=== PATIENT | female | born 1970 | race Caucasian/White ===

== ENCOUNTER 2022-02-16 14:00 | Emergency (ER) | payer OTHER ==
[~2022-02-16] VITALS: Ht 154.9 cm; Wt 62.1 kg
[2022-02-16 14:09] VITALS: BP 135/85
[2022-02-16] MEDS ORDERED: KETOROLAC 30 MG/ML VIAL IM ONE (15:25)
[2022-02-16] MEDS ORDERED: IBUP-2213 PO (17:46)
[2022-02-16] MEDS ORDERED: CEPH-588 PO (17:46)
[2022-02-16 18:08] VITALS: BP 128/65
== END 2022-02-16 18:08 | disposition home or self-care (01) ==
LOC: MED 14:00
DX: M79.652 Pain in left thigh (principal); M79.651 Pain in right thigh; N39.0 Urinary tract infection, site not specified
CPT/HCPCS: 73552; 81025; 96372; 99283; J1885

== ENCOUNTER 2022-03-08 08:45 | Emergency (ER) | payer OTHER ==
[~2022-03-08] VITALS: Ht 151.6 cm; Wt 68.0 kg
[~2022-03-08 08:45] MED LIST: CEPH-588 PO; IBUP-2213 PO
[2022-03-08 08:55] VITALS: BP 150/85
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
[2022-03-08] MEDS ORDERED: BEN50 PO (09:44)
[2022-03-08] MEDS ORDERED: PRED20TA5 PO (09:44)
[2022-03-08] MEDS ORDERED: FLUO0.0210 TP (09:44)
[2022-03-08 09:55] VITALS: BP 150/85
--- NOTE | 2022-03-08 09:55 | NUR ---
Patient discharged with v/s stable. Written and verbal after care instructions ABOUT CONTACT DERMATITIS given and explained. Patient alert, oriented and verbalized understanding of instructions. Ambulatory with steady gait. All questions addressed prior to discharge. ID band removed. Patient advised to follow up with PMD. Rx of BENADRYL, SYNALAR AND DELTASONE given. Patient educated on indication of medication including possible reaction and side effects. Opportunity to ask questions provided and answered.
== END 2022-03-08 09:55 | disposition home or self-care (01) ==
LOC: MED 08:45
DX: L25.9 Unspecified contact dermatitis, unspecified cause (principal); D64.9 Anemia, unspecified; F41.9 Anxiety disorder, unspecified; Z79.899 Other long term (current) drug therapy
CPT/HCPCS: 99283

== ENCOUNTER 2023-01-23 12:21 | Emergency (ER) | payer BC, OTHER ==
[~2023-01-23] VITALS: Ht 152.4 cm; Wt 68.0 kg
[~2023-01-23 12:21] MED LIST changes: +BEN50 PO; +FLUO0.0210 TP; +PRED20TA5 PO
[2023-01-23 12:46] VITALS: BP 120/54; PULSE 88; RESP 20; TEMP 98; O2SAT 100
[2023-01-23] MEDS ORDERED: diphenhydrAMINE 50 MG CAP PO ONE (13:35)
[2023-01-23] MEDS ORDERED: FAMOTIDINE 20 MG TAB PO ONE (13:35)
[2023-01-23] MEDS ORDERED: predniSONE 20 MG TAB PO ONE (13:35)
[2023-01-23] MEDS ORDERED: PRED20TA5 PO (14:37)
[2023-01-23] MEDS ORDERED: NITR100C7 PO (14:37)
[2023-01-23] MEDS ORDERED: LORA10TA19 PO (14:37)
[2023-01-23 14:49] VITALS: BP 115/79; PULSE 74; RESP 17; O2SAT 99
--- NOTE | 2023-01-23 14:50 | NUR ---
Patient discharged with v/s stable. Written and verbal after care instructions given and explained. Patient alert, oriented and verbalized understanding of instructions. Ambulatory with steady gait. All questions addressed prior to discharge. ID band removed. Patient advised to follow up with PMD. Rx of CLARITIN, MACROBID given. Patient educated on indication of medication including possible reaction and side effects. Opportunity to ask questions provided and answered.
== END 2023-01-23 14:49 | disposition home or self-care (01) ==
LOC: MED 12:21
DX: L50.9 Urticaria, unspecified (principal); N39.0 Urinary tract infection, site not specified; Z79.899 Other long term (current) drug therapy
CPT/HCPCS: 81002; 81025; 99284; J7512; Q0163

== ENCOUNTER 2023-01-27 09:03 | Emergency (ER) | payer BC ==
[~2023-01-27] VITALS: Ht 152.4 cm; Wt 70.3 kg
[~2023-01-27 09:03] MED LIST changes: +LORA10TA19 PO; +NITR100C7 PO
[2023-01-27 09:14] VITALS: BP 122/90; PULSE 98; RESP 20; TEMP 97.6
--- NOTE | 2023-01-27 10:50 | NUR ---
Patient discharged with v/s stable. Written and verbal after care instructions FOR COVID 19 given and explained. Patient verbalized understanding. Ambulatory with steady gait. All questions addressed prior to discharge. Advised to follow up with PMD.
--- NOTE | 2023-01-27 12:10 | NUR ---
The patient's care was reviewed and supervised by TERESO BEAUCHAMP RN.
== END 2023-01-27 10:50 | disposition home or self-care (01) ==
LOC: MED 09:03
DX: U07.1 COVID-19 (principal); R04.0 Epistaxis; Z79.899 Other long term (current) drug therapy
CPT/HCPCS: 99281

== ENCOUNTER 2023-03-19 16:18 | Emergency (ER) | payer BC ==
[~2023-03-19] VITALS: Ht 152.4 cm; Wt 72.6 kg
[2023-03-19] MEDS ORDERED: IBUP-1842 PO (17:14)
[2023-03-19] MEDS ORDERED: AMOX500C25 PO (17:14)
[2023-03-19 17:18] VITALS: BP 126/83; PULSE 78; RESP 18; TEMP 98; O2SAT 98
[2023-03-19 17:25] VITALS: BP 126/83; PULSE 78; RESP 18; TEMP 98; O2SAT 98
== END 2023-03-19 17:25 | disposition home or self-care (01) ==
LOC: MED 16:18
DX: R51.9 Headache, unspecified (principal); K08.89 Other specified disorders of teeth and supporting structures; Z88.8 Allergy status to other drugs, medicaments and biological substances; Z79.899 Other long term (current) drug therapy
CPT/HCPCS: 99283